=== PATIENT | female | born 1985 | race Caucasian/White ===

== ENCOUNTER 2016-12-29 19:19 | Emergency (ER) | payer MEDICAID ==
[~2016-12-29] VITALS: Ht 170.2 cm; Wt 108.0 kg
[2016-12-29 19:22] VITALS: BP 141/87
== END 2016-12-29 20:18 | disposition home or self-care (01) ==
LOC: ED 20:12
DX: J01.00 Acute maxillary sinusitis, unspecified (principal)
CPT/HCPCS: 99283

== ENCOUNTER 2021-03-07 08:17 | Emergency (ER) | payer MEDICAID ==
[~2021-03-07] VITALS: Ht 170.2 cm; Wt 95.4 kg
--- NOTE | 2021-03-07 08:31 | NUR ---
business change manager note: ekg taken in triage, reviewed by gavin wolfe.
--- NOTE | 2021-03-07 08:48 | NUR ---
PT AMBULATED BACK TO ROOM WITHOUT DIFFICULTY.
--- NOTE | 2021-03-07 08:56 | NUR ---
ER PA AT BS NOW. PT REPORTS CHEST PAIN & LIGHTHEADEDNESS SUBSIDED NOW. PT REPORTS MILD SOB NOW.
[2021-03-07] MEDS ORDERED: RESCUE INHALER INH (08:58)
[2021-03-07] MEDS ORDERED: LEVO25TA4 PO (08:58)
[2021-03-07] MEDS ORDERED: KETOROLAC 30 MG/1 ML IM ONE (09:00)
[2021-03-07] MEDS ORDERED: CYCLOBENZAPRINE 10 MG TABLET PO ONE (09:00)
[2021-03-07] MEDS ORDERED: CYCLOBENZAPRINE 10 MG TABLET ONE (09:39)
[2021-03-07] MEDS ORDERED: KETOROLAC 30 MG/1 ML ONE (09:39)
--- NOTE | 2021-03-07 09:47 | NUR ---
PT MEDICATED PER ORDERS. AMBULATED TO BR WITHOUT DIFFICULTY.
--- NOTE | 2021-03-07 10:34 | NUR ---
PT STATES SHE'S FEELING FINE AFTER MEDS. AWAITING LAB RESULTS. NO OTHER NEEDS AT THIS TIME.
[2021-03-07 10:39] LABS: BASOPHILS % (AUTO) 0 % (0-1); EOSINOPHILS % (AUTO) 2 % (1-7); LYMPHOCYTES % (AUTO) 22 % (22-44); MEAN CORPUSCULAR HEMOGLOBIN 30.8 pg (27.0-34.8); MEAN CORPUSCULAR HGB CONC 34.5 g/dL (32.4-35.8); MEAN PLATELET VOLUME 8.8 fL (7.4-10.4); MONOCYTES % (AUTO) 6 % (2-9); NEUTROPHILS % (AUTO) 69 % (42-75); PLATELET COUNT 276 x10^3/uL (130-400); RED BLOOD COUNT 4.54 x10^6/uL (3.82-5.3); RED CELL DISTRIBUTION WIDTH 12.5 % (9.6-15.2)
[2021-03-07 10:50] LABS: ALANINE AMINOTRANSFERASE 23 U/L (12-78); ALBUMIN 3.5 g/dL (3.4-5.0); ANION GAP 4 mmol/L (5-15); CALCIUM 8.5 mg/dL (8.5-10.1); CHLORIDE 108 mmol/L (98-107); CREATININE 0.67 mg/dL (0.55-1.02)
[2021-03-07 10:54] LABS: ALKALINE PHOSPHATASE 67 U/L (45-117); BILIRUBIN,TOTAL 0.4 mg/dL (0.2-1.0); TOTAL PROTEIN 7.6 g/dL (6.4-8.2); TROPONIN I < 0.015 ng/mL (0.000-0.045)
[2021-03-07 11:42] VITALS: BP 115/68
--- NOTE | 2021-03-07 11:43 | NUR ---
ERP WAS IN FOR RECHECK. D/C INSTRUCTIONS, MEDS & F/U APPT RV'WD WITH PT, SHE VERBALIZES UNDERSTANDING. PT DECLINED WORK NOTE. AMBULATED OUT OF ED WITHOUT DIFFICULTY.
== END 2021-03-07 11:46 | disposition home or self-care (01) ==
LOC: ED 11:40
DX: R07.89 Other chest pain (principal); R42 Dizziness and giddiness; R06.02 Shortness of breath; R94.31 Abnormal electrocardiogram [ECG] [EKG]; J45.909 Unspecified asthma, uncomplicated; Z90.49 Acquired absence of other specified parts of digestive tract; Z86.39 Personal history of other endocrine, nutritional and metabolic disease; Z88.0 Allergy status to penicillin
CPT/HCPCS: 36415; 71045; 80053; 84484; 85025; 93005; 96372; 99285; J1885